=== PATIENT | female | born 1935 | race Caucasian/White ===

== ENCOUNTER 2016-09-20 15:29 | Emergency (ER) | payer MEDICARE, OTHER ==
[2016-09-20] MEDS ORDERED: ASPIRIN 81 MG TABLET, CHEWABLE PO ONE (16:07)
--- NOTE | 2016-09-20 16:32 | RADIOLOGY REPORT (SQ) ---
EXAM DESCRIPTION: CHEST SINGLE VIEW COMPLETED DATE/TIME: 09/20/2016 4:20 pm REASON FOR STUDY: cp COMPARISON: 11/25/2015 NUMBER OF VIEWS: One view. TECHNIQUE: Single frontal radiographic view of the chest acquired. LIMITATIONS: None. FINDINGS: LUNGS AND PLEURA: No opacities, masses or pneumothorax. No pleural effusion. MEDIASTINUM AND HILAR STRUCTURES: No masses. Contour normal. HEART AND VASCULAR STRUCTURES: Heart normal in size. Normal vasculature. BONES: Fracture deformity right humeral head, likely chronic. Correlate clinically or with older jael ms. HARDWARE: None in the chest. OTHER: No other significant finding. IMPRESSION: No acute cardiopulmonary changes. Deformity right humeral head, likely old fracture deformity. TECHNICAL DOCUMENTATION: JOB ID: [id number] [employer]- All Rights Reserved
[2016-09-20 16:35] LABS: ABSOLUTE EOSINOPHILS # (AUTO) 0.1 10^3/uL (0.0-0.6); ABSOLUTE LYMPHOCYTES (AUTO) 1.5 10^3/uL (0.5-4.7); ABSOLUTE MONOCYTES (AUTO) 0.6 10^3/uL (0.1-1.4); ABSOLUTE NEUT (AUTO) 4.6 10^3/uL (1.7-8.2); BASOPHILS % (AUTO) 0.7 % (0-2); EOSINOPHILS % (AUTO) 1.2 % (0-6); MEAN CORPUSCULAR HEMOGLOBIN 31.8 pg (27.0-33.4); MEAN CORPUSCULAR HGB CONC 34.1 g/dL (32.0-36.0); MEAN CORPUSCULAR VOLUME 93 fl (80-97); MONOCYTES % (AUTO) 8.3 % (3-13); RED BLOOD COUNT 4.39 10^6/uL (3.72-5.28); RED CELL DISTRIBUTION WIDTH 13.7 % (11.5-14.0); SEGMENTED NEUTROPHILS % (AUTO) 67.8 % (42-78); WHITE BLOOD COUNT 6.8 10^3/uL (4.0-10.5)
--- NOTE | 2016-09-20 16:35 | ER Document Report ---
ED Respiratory Problem - General Mode of Arrival: Ambulatory Information source: Patient TRAVEL OUTSIDE OF THE [place] IN LAST 30 DAYS: No <ZEENAT NGUYEN - Last Filed: 09/20/16 18:39> <FAITH THRASHER - Last Filed: 09/20/16 21:58> - General Chief Complaint: Chest Pain Stated Complaint: CHEST PAIN, BACK PAIN Time Seen by Provider: 09/20/16 16:13 Notes: Patient is a 81 year old female that presents to the emergency department today with complaints of chest pain beginning this morning. Patient states that she was drinking coffee this morning on the front porch when the pain began. Patient states she lied down to take a nap and the pain was still there when she woke up. Daughter at bedside states she gave the patient aspirin and Mylanta thinking it could have been GERD with no relief. Patient states it hurts to breathe and the pain is reproducible. Patient states the pain seems to radiate to her back. Patient states she has a slight cough and history of COPD. Patient stopped smoking in 1988. Patient denies any fevers, history of heart disease, or history of any clotting disorders. (ZEENAT NGUYEN) - Related Data Allergies/Adverse Reactions: No Known Allergies Allergy (Unverified 11/25/15 15:55) Past Medical History - General Information source: Patient - Social History Smoking Status: Unknown if Ever Smoked Cigarette use (# per day): No Frequency of alcohol use: None Drug Abuse: None Lives with: Family Family History: Reviewed & Not Pertinent Patient has suicidal ideation: No Patient has homicidal ideation: No Pulmonary Medical History: Reports: Hx COPD Musculoskeltal Medical History: Reports Hx Arthritis Past Surgical History: Reports: Hx Hysterectomy <ZEENAT NGUYEN - Last Filed: 09/20/16 18:39> Review of Systems - Review of Systems Constitutional: denies: Fever EENT: No symptoms reported Cardiovascular: See HPI, Chest pain Respiratory: See HPI, Cough Gastrointestinal: No symptoms reported Genitourinary: No symptoms reported Female Genitourinary: No symptoms reported Musculoskeletal: No symptoms reported Skin: No symptoms reported Hematologic/Lymphatic: No symptoms reported Neurological/Psychological: No symptoms reported -: Yes All other systems reviewed and negative <ZEENAT NGUYEN - Last Filed: 09/20/16 18:39> Physical Exam <ZEENAT NGUYEN - Last Filed: 09/20/16 18:39> <FAITH THRASHER - Last Filed: 09/20/16 21:58> - Vital signs Vitals: Temp Pulse BP Pulse Ox 97.7 F 69 127/56 H 97 09/20/16 15:39 09/20/16 15:39 09/20/16 15:39 09/20/16 15:39 - Notes Notes: Physical Exam: General: Alert, appears well. HEENT: Normocephalic. Atraumatic. PERRL. Extraocular movements intact. Oropharynx clear. Neck: Supple. Non-tender. Respiratory: No respiratory distress. Clear and equal breath sounds bilaterally. Cardiovascular: Regular rate and rhythm. Abdominal: Normal Inspection. Non-tender. No distension. Normal Bowel Sounds. Back: Non-tender. No deformity or step off. Extremities: Moves all four extremities. Upper extremities: Normal inspection. Normal ROM. Lower extremities: Normal inspection. No edema. Normal ROM. Neurological: Normal cognition. AAOx4. Normal speech. Psychological: Normal affect. Normal Mood. Skin: Warm. Dry. Normal color. (ZEENAT NGUYEN) Course - Laboratory Result Diagrams: 09/20/16 16:10 09/20/16 16:10 <ZEENAT NGUYEN - Last Filed: 09/20/16 18:39> - Laboratory Result Diagrams: 09/20/16 16:10 09/20/16 16:10 - Diagnostic Test Radiology reviewed: Reports reviewed - EKG Interpretation by Al EKG shows normal: Sinus rhythm Rate: Normal Rhythm: NSR <FAITH THRASHER - Last Filed: 09/20/16 21:58> - Re-evaluation Re-evalutation: 09/20/16 18:00 Pt updated and is chest pain free at this time. (ZEENAT NGUYEN) 09/20/16 Patient has no further complaints at this time. Patient has had no further chest pain. No acute findings on chest x-ray, EKG. Troponin negative 2. D- dimer negative. Patient feels well at this time. Patient will be discharged home is to follow-up with her doctor. Return if any worsening or concerning symptoms. Of note, patient did receive aspirin at home. Stable for discharge at this time. (FAITH THRASHER) - Vital Signs Vital signs: Temp Pulse Resp BP Pulse Ox 97.7 F 69 13 129/57 H 99 09/20/16 15:39 09/20/16 15:39 09/20/16 19:01 09/20/16 19:01 09/20/16 19:01 Discharge <ZEENAT NGUYEN - Last Filed: 09/20/16 18:39> <FIATH THRASHER - Last Filed: 09/20/16 21:58> - Discharge Clinical Impression: Atypical chest pain Condition: Stable Disposition: HOME, SELF-CARE Instructions: Chest Pain of Unclear Cause ([facility]) Additional Instructions: Please follow-up with your doctor regarding your symptoms. Your cardiac enzymes were negative. There is no evidence for a blood clot or pneumonia. Please follow-up with your doctor this week. Return if you have any further concerns. Scribe Attestation: 09/20/16 21:58 I personally performed the services described in the documentation, reviewed and edited the documentation which was dictated to the scribe in my presence, and it accurately records my words and actions. (FAITH THRASHER) Scribe Documentation - Scribe Written by Marck:: Marck Parra, 09/20/2016 1700 acting as scribe for :: Cleo <ZEENAT NGUYEN - Last Filed: 09/20/16 18:39>
[2016-09-20 16:50] LABS: ALANINE AMINOTRANSFERASE 21 U/L (9-52); ALBUMIN 4.2 g/dL (3.5-5.0); ALKALINE PHOSPHATASE 65 U/L (38-126); ANION GAP 10 (5-19); ASPARTATE AMINO TRANSFERASE 22 U/L (14-36); BILIRUBIN,DIRECT 0.4 mg/dL (0.0-0.4); BILIRUBIN,TOTAL 0.6 mg/dL (0.2-1.3); BLOOD UREA NITROGEN 8 mg/dL (7-20); CALCIUM 9.9 mg/dL (8.4-10.2); CARBON DIOXIDE 26 mmol/L (22-30); CHLORIDE 105 mmol/L (98-107); CREATINE KINASE 85 U/L (30-135); CREATININE RESULT 0.75 mg/dL (0.52-1.25); GLUCOSE 99 mg/dL (75-110); SODIUM 140.6 mmol/L (137-145); TOTAL PROTEIN 6.9 g/dL (6.3-8.2)
[2016-09-20 17:02] LABS: CREATINE KINASE MB 0.49 ng/mL (<4.55)
[2016-09-20 17:03] LABS: TROPONIN I < 0.012 ng/mL
[2016-09-20 19:40] VITALS: BP 129/57
--- NOTE | 2016-09-21 08:25 | EKG REPORT ---
SEVERITY:- NORMAL ECG - SINUS RHYTHM NONSPECIFIC INFERIOR ST CHANGES : Confirmed by: Celestino De Dios MD 21-Sep-2016 08:24:51
== END 2016-09-20 19:40 | disposition home or self-care (01) ==
LOC: ER 15:29
DX: R07.89 Other chest pain (principal); J44.9 Chronic obstructive pulmonary disease, unspecified; Z90.710 Acquired absence of both cervix and uterus
CPT/HCPCS: 36415; 71010; 80053; 82550; 82553; 84484; 85025; 85379; 93005; 93010; 99285

== ENCOUNTER → 2018-09-12 | Outpatient (CLI) | payer MEDICARE, OTHER ==
[2018-09-12 10:50] LABS: ABSOLUTE EOSINOPHILS # (AUTO) 0.1 10^3/uL (0.0-0.6); ABSOLUTE LYMPHOCYTES (AUTO) 1.2 10^3/uL (0.5-4.7); ABSOLUTE MONOCYTES (AUTO) 0.4 10^3/uL (0.1-1.4); ABSOLUTE NEUT (AUTO) 4.4 10^3/uL (1.7-8.2); BASOPHILS % (AUTO) 0.8 % (0-2); EOSINOPHILS % (AUTO) 1.2 % (0-6); HEMATOCRIT 40.9 % (36.0-47.0); HEMOGLOBIN 13.8 g/dL (12.0-15.5); LYMPHOCYTES % (AUTO) 18.8 % (13-45); MEAN CORPUSCULAR HEMOGLOBIN 31.1 pg (27.0-33.4); MEAN CORPUSCULAR HGB CONC 33.7 g/dL (32.0-36.0); MEAN CORPUSCULAR VOLUME 92 fl (80-97); MONOCYTES % (AUTO) 6.7 % (3-13); PLATELET COUNT 263 10^3/uL (150-450); RED BLOOD COUNT 4.44 10^6/uL (3.72-5.28); RED CELL DISTRIBUTION WIDTH 13.3 % (11.5-14.0); SEGMENTED NEUTROPHILS % (AUTO) 72.5 % (42-78); TOTAL CELLS COUNTED % (AUTO) 100 %; WHITE BLOOD COUNT 6.1 10^3/uL (4.0-10.5)
[2018-09-12 11:16] LABS: ALBUMIN 4.2 g/dL (3.5-5.0); ALKALINE PHOSPHATASE 67 U/L (38-126); ANION GAP 5 (5-19); ASPARTATE AMINO TRANSFERASE 24 U/L (14-36); BILIRUBIN,DIRECT 0.2 mg/dL (0.0-0.4); BILIRUBIN,TOTAL 0.6 mg/dL (0.2-1.3); BLOOD UREA NITROGEN 9 mg/dL (7-20); CALCIUM 9.6 mg/dL (8.4-10.2); CARBON DIOXIDE 29 mmol/L (22-30); CHLORIDE 105 mmol/L (98-107); CHOLESTEROL 206.25 mg/dL (0-200); GLUCOSE 87 mg/dL (75-110); TOTAL PROTEIN 6.7 g/dL (6.3-8.2); TRIGLYCERIDES 162 mg/dL (<150)
[2018-09-12 11:26] LABS: DIRECT LDL 120 mg/dL (<100)
[2018-09-12 12:03] LABS: VLDL CHOLESTEROL 32.4 mg/dL (10-31)
== END ==
LOC: OD 09:37
PROVIDERS: ATTEND Family Medicine Geriatric Medicine
DX: J44.9 Chronic obstructive pulmonary disease, unspecified (principal); M81.0 Age-related osteoporosis without current pathological fracture; E53.9 Vitamin B deficiency, unspecified; M19.90 Unspecified osteoarthritis, unspecified site; Z79.899 Other long term (current) drug therapy
CPT/HCPCS: 36415; 80053; 80061; 82607; 84443; 85025